=== PATIENT | male | born 1995 | race Caucasian/White ===

== ENCOUNTER 2017-07-05 08:38 | Emergency (ER) | payer BC ==
[2017-07-05 08:59] VITALS: BP 125/77
--- NOTE | 2017-07-05 10:54 | UC ---
Respiratory Complaint HPI - HPI Summary HPI Summary: Onset of sore throat, pain with swallowing, cough, achiness yesterday. No fever , ear pain, nausea/vomiting. Patient is concerned about being ill as his is currently expecting their child. - History of Current Complaint Chief Complaint: UCRespiratory Stated Complaint: SORE THROAT Time Seen by Provider: 07/05/17 09:55 Hx Obtained From: Patient Onset/Duration: Gradual Onset, Lasting Days - 1 DAY, Still Present Timing: Constant Severity Initially: Moderate Severity Currently: Moderate Pain Intensity: 0 Pain Scale Used: 0-10 Numeric Character: Cough: Nonproductive Aggravating Factors: Nothing Alleviating Factors: Nothing Associated Signs And Symptoms: Positive: URI, Nasal Congestion. Negative: Dyspnea, Fever, Chills, Wheezing, Hemoptysis, Hoarseness - Allergies/Home Medications Allergies/Adverse Reactions: Allergies Allergy/AdvReac Type Severity Reaction Status Date / Time Penicillins Allergy Rash Verified 07/05/17 08:47 Home Medications: Home Medications NK [No Home Medications Reported] 07/05/17 [History Confirmed 07/05/17] PMH/Surg Hx/FS Hx/Imm Hx Previously Healthy: Yes Other History Of: Negative For: Anticoagulant Therapy - Surgical History Surgical History: Yes Surgery Procedure, Year, and Place: Tonsillectomy and adenoidectomy as a child. Left Fracture Femur Repair. Right Patella surgery 2013 - Family History Known Family History: Positive: None Negative: Cardiac Disease, Hypertension, Diabetes - Social History Alcohol Use: Occasionally Substance Use Type: Marijuana Substance Use Comment - Amount & Last Used: ON OCCASION Smoking Status (MU): Light Every Day Tobacco Smoker Type: Cigarettes Amount Used/How Often: 1/4 PPD Length of Time of Smoking/Using Tobacco: 9 YEARS Have You Smoked in the Last Year: Yes When Did the Patient Quit Smoking/Using Tobacco: Yeaterday - Immunization History Most Recent Influenza Vaccination: 7273-2932 Most Recent Tetanus Shot: UTD Vaccination Up to Date: Yes Review of Systems Constitutional: Negative ENT: Sore Throat, Nasal Discharge Respiratory: Cough Cardiovascular: Negative Gastrointestinal: Negative Musculoskeletal: Myalgia All Other Systems Reviewed And Are Negative: Yes Physical Exam Triage Information Reviewed: Yes Appearance: Well-Appearing, No Pain Distress, Well-Nourished Vital Signs: Initial Vital Signs Temp 98.8 F 07/05/17 08:42 Pulse 81 07/05/17 08:42 Resp 18 07/05/17 08:42 BP 125/77 07/05/17 08:42 Pulse Ox 99 07/05/17 08:42 Vital Signs Reviewed: Yes Eyes: Positive: Conjunctiva Clear ENT: Positive: Hearing grossly normal, Pharynx normal, TMs normal Neck: Positive: Supple, Nontender, Enlarged Nodes @ - Superficial cervical LAD Respiratory Exam: Normal Cardiovascular Exam: Normal Abdomen Description: Positive: Soft Musculoskeletal: Positive: No Edema Neurological: Positive: Alert Psychological: Positive: Age Appropriate Behavior Skin: Negative: rashes UC Diagnostic Evaluation - Laboratory O2 Sat by Pulse Oximetry: 99 Respiratory Course/Dx - Differential Dx/Diagnosis Provider Diagnoses: ACUTE URI Discharge - Sign-Out/Discharge Documenting (check all that apply): Discharge/Admit/Transfer - Discharge Plan Condition: Stable Disposition: HOME Patient Education Materials: Upper Respiratory Infection (ED) Forms: *Work Release Referrals: Ami Covington MD [Primary Care Provider] - If Needed Additional Instructions: YOUR SYMPTOMS ARE LIKELY VIRALLY MEDIATED AND SHOULD RESOLVE ON THEIR OWN WITH TIME. NO INDICATION FOR ANTIBIOTICS AT PRESENT. REST, HYDRATE, OTC MEDS NEEDED. SEEK FOLLOW-UP IF YOU ARE NOT IMPROVING OVER THE NEXT 1-2 WEEKS. ACUTE UPPER RESPIRATORY INFECTION The common cold is a benign self-limited syndrome representing a group of diseases caused by members of several families of viruses. It is the most frequent acute illness in the [place] and throughout the industrialized world. The term "common cold" refers to a mild upper respiratory viral infection involving, to variable degrees, nasal congestion and discharge ( rhinorrhea), sneezing, sore throat, cough, low-grade fever, headache, and malaise. Symptomatic therapy remains the mainstay of common cold treatment. In the absence of convincing evidence of a secondary bacterial infection, antibiotics are not effective in the treatment of the common cold and should not be prescribed. Be advised that the usual course and duration of illness is up to one and a half weeks for patients with a cold, but can last slightly longer; symptoms usually persist longer in smokers. - Billing Disposition and Condition Condition: STABLE Disposition: HOME
== END 2017-07-05 10:20 | disposition home or self-care (01) ==
LOC: UCEAST 08:38
DX: J06.9 Acute upper respiratory infection, unspecified (principal); Z88.0 Allergy status to penicillin; F17.210 Nicotine dependence, cigarettes, uncomplicated
CPT/HCPCS: 99211; G0463

== ENCOUNTER 2017-07-13 06:41 | Emergency (ER) | payer BC ==
[2017-07-13 06:48] VITALS: BP 152/105
--- NOTE | 2017-07-13 08:21 | ED ---
Skin Complaint - HPI Summary HPI Summary: Patient is a 21-year-old male who presents emergency department for evaluation of a sunburn that he sustained 2 days ago. Patient states he was working on a roof 2 days ago when he sustained a sunburn. Patient states he isn't putting a "burn cream" and aloe on burn as well as taking naproxen. Patient states he was concerned because in the shower this morning he noticed drainage from sunburn on his left arm and presented to the emergency department. He has no past medical history. No associated symptoms of fever or chills. Touching area exacerbates pain. Analgesics and creams improve pain. Symptoms are minimal in severity. - History of Current Complaint Chief Complaint: EDRashSkinAbscess Time Seen by Provider: 07/13/17 07:27 Stated Complaint: RASH Hx Obtained From: Patient Pain Intensity: 5 Pain Scale Used: 0-10 Numeric - Allergy/Home Medications Allergies/Adverse Reactions: Allergies Allergy/AdvReac Type Severity Reaction Status Date / Time Penicillins Allergy Rash Verified 07/05/17 08:47 Home Medications: Home Medications Glucosamine CAP (NF) 1 cap PO DAILY 07/13/17 [History Confirmed 07/13/17] PMH/Surg Hx/FS Hx/Imm Hx Previously Healthy: Yes Endocrine/Hematology History: Denies: Hx Anticoagulant Therapy, Hx Blood Disorders, Hx Diabetes, Hx Thyroid Disease Cardiovascular History: Denies: Hx Hypertension Respiratory History: Reports: Hx Asthma - A CHILD Denies: Hx Chronic Obstructive Pulmonary Disease (COPD) GI History: Denies: Hx Ulcer Sensory History: Denies: Hx Contacts or Glasses, Hx Hearing Aid Opthamlomology History: Denies: Hx Contacts or Glasses Psychiatric History: Reports: Hx Depression - IN THE PAST-NO MEDS - Surgical History Surgery Procedure, Year, and Place: Tonsillectomy and adenoidectomy as a child. Left Fracture Femur Repair. Right Patella surgery 2013 Hx Anesthesia Reactions: No - Immunization History Date of Tetanus Vaccine: up to date per pt Infectious Disease History: No Infectious Disease History: Denies: Hx Clostridium Difficile, Hx Hepatitis, Hx Human Immunodeficiency Virus (HIV), History Other Infectious Disease, Traveled Outside the [place] in Last 30 Days - Family History Known Family History: Positive: None Negative: Cardiac Disease, Hypertension, Diabetes - Social History Occupation: Employed Full-time Lives: With Family Alcohol Use: Occasionally Substance Use Type: Reports: Marijuana Substance Use Comment - Amount & Last Used: ON OCCASION Smoking Status (MU): Light Every Day Tobacco Smoker Type: Cigarettes Amount Used/How Often: 1/4 PPD Length of Time of Smoking/Using Tobacco: 9 YEARS Have You Smoked in the Last Year: Yes Review of Systems Constitutional: Negative Negative: Fever, Chills Positive: Other - sunburn to bilateral arms All Other Systems Reviewed And Are Negative: Yes Physical Exam Triage Information Reviewed: Yes Vital Signs On Initial Exam: Initial Vitals Temp Pulse Resp BP Pulse Ox 97 F 78 20 152/105 97 07/13/17 06:42 07/13/17 06:42 07/13/17 06:42 07/13/17 06:42 07/13/17 06:42 Vital Signs Reviewed: Yes Appearance: Positive: Well-Appearing - Patient sitting in bed in no acute distress. Skin: Positive: Other - Sunburn noted to bilateral arms and face. Noted to the left upper arm skin appears to be sloughing off and the skin is wet. No purulent discharge. No surrounding erythema, edema or induration. Head/Face: Positive: Normal Head/Face Inspection Eyes: Positive: Normal Neurological: Positive: Normal, Alert, Oriented to Person Place, Time Psychiatric: Positive: Normal Diagnostics - Vital Signs Vital Signs Temp Pulse Resp BP Pulse Ox 07/13/17 07:42 97 F 78 18 152/105 97 07/13/17 06:42 97 F 78 20 152/105 97 - Laboratory Lab Statement: Any lab studies that have been ordered have been reviewed, and results considered in the medical decision making process. Course/Dx - Course Course Of Treatment: Patient presenting for evaluation of sunburn with blistering. No signs of infection. She was reassured. Advised him to continue supportive treatment at home that he has already been doing. Cool compresses. Advised to avoid sun and wear long shirts and to always wear sunscreen. Will follow-up with PCP if needed. Patient understands and agrees with plan. - Differential Diagnoses - Skin Complaint Differential Diagnoses: Abscess, Cellulitis - Diagnoses Provider Diagnoses: Burn from the sun Discharge - Sign-Out/Discharge Documenting (check all that apply): Discharge/Admit/Transfer - Discharge Plan Condition: Good Disposition: HOME Patient Education Materials: Sunburn (ED) Referrals: Ami Covington MD [Primary Care Provider] - Additional Instructions: Follow up with PCP Keep skin clean and dry Can continue burn creams as directed NSAIDS for pain as directed Apply cool compresses Use sunscreen and keep skin covered when exposure to the sun Return to ER if symptoms change or worsen - Billing Disposition and Condition Condition: GOOD Disposition: HOME
== END 2017-07-13 07:43 | disposition home or self-care (01) ==
LOC: ED 06:41
DX: L55.9 Sunburn, unspecified (principal); J45.909 Unspecified asthma, uncomplicated; F32.9 Major depressive disorder, single episode, unspecified; Z88.0 Allergy status to penicillin; F17.210 Nicotine dependence, cigarettes, uncomplicated
CPT/HCPCS: 99282

== ENCOUNTER 2019-05-08 07:02 | Emergency (ER) | payer SELFPAY ==
[2019-05-08 07:28] VITALS: BP 151/92
--- NOTE | 2019-05-08 07:59 | UC ---
Skin Complaint HPI - HPI Summary HPI Summary: 23-year-old male comes in with a chief complaint of a rash. Started 1-2 weeks ago. It's primarily on his trunk. He has no fevers no chills feels well otherwise. Does not itch. He has had multiple tick bites in the past and is wondering if it's Lyme disease. - History of Current Complaint Chief Complaint: UCRash Time Seen by Provider: 05/08/19 07:17 Stated Complaint: POSS. LYME Pain Intensity: 0 - Allergy/Home Medications Allergies/Adverse Reactions: Allergies Allergy/AdvReac Type Severity Reaction Status Date / Time Penicillins Allergy Rash Verified 07/05/17 08:47 Home Medications: Home Medications DOXYcycline CAP(*) [DOXYcycline 100MG CAP(*)] 100 mg PO BID #28 cap 05/08/19 [Rx ] PMH/Surg Hx/FS Hx/Imm Hx Previously Healthy: Yes Other History Of: Negative For: Anticoagulant Therapy - Surgical History Surgical History: Yes Surgery Procedure, Year, and Place: Tonsillectomy and adenoidectomy as a child. Left Fracture Femur Repair. Right Patella surgery 2013 - Family History Known Family History: Positive: None Negative: Cardiac Disease, Hypertension, Diabetes - Social History Alcohol Use: Occasionally Substance Use Type: Marijuana Substance Use Comment - Amount & Last Used: ON OCCASION Smoking Status (MU): Light Every Day Tobacco Smoker Type: Cigarettes Amount Used/How Often: 1/4 PPD Length of Time of Smoking/Using Tobacco: 9 YEARS Have You Smoked in the Last Year: Yes When Did the Patient Quit Smoking/Using Tobacco: Yeater - Immunization History Most Recent Influenza Vaccination: [id number] Most Recent Tetanus Shot: UTD Vaccination Up to Date: Yes Review of Systems All Other Systems Reviewed And Are Negative: Yes Constitutional: Positive: Negative Skin: Positive: Rash - SEE HPI Eyes: Positive: Negative ENT: Positive: Negative Respiratory: Positive: Negative Cardiovascular: Positive: Negative Gastrointestinal: Positive: Negative Motor: Positive: Negative Neurovascular: Positive: Negative Musculoskeletal: Positive: Negative Neurological/Mental Status: Positive: Negative Psychological: Positive: Negative Is Patient Immunocompromised?: No Physical Exam Triage Information Reviewed: Yes Appearance: Well-Appearing, No Pain Distress, Well-Nourished Vital Signs: Initial Vital Signs Temp 98.6 F 05/08/19 07:26 Pulse 98 05/08/19 07:26 Resp 18 05/08/19 07:26 BP 151/92 05/08/19 07:26 Pulse Ox 99 05/08/19 07:26 Vital Signs Reviewed: Yes Eye Exam: Normal Eyes: Positive: Conjunctiva Clear ENT: Positive: Pharynx normal Neck: Positive: Supple Respiratory: Positive: Lungs clear, Normal breath sounds, No respiratory distress Cardiovascular: Positive: RRR Musculoskeletal: Positive: Strength Intact, ROM Intact Neurological: Positive: Alert, Muscle Tone Normal Psychological: Positive: Age Appropriate Behavior Skin: Positive: Other - Diffuse rash on the chest that are mostly oval, papulosquamous lesions. I do not appreciate any specific herald patch. Course/Dx - Course Course Of Treatment: The rash appears to be pityriasis rosea. Patient is concerned about the possibility of Lyme disease. He has no other infectious symptoms besides the rash. We are checking a Lyme screen. Give the patient prescription for doxycycline 100 mg twice a day for 14 days to be treated for Lyme disease. If the patient continues to feel well but the rash does not go away he is to follow -up with dermatology. If the patient starts to feel more ill he is to get reevaluated right away. - Diagnoses Provider Diagnosis: Rash, Tick bite Discharge ED - Sign-Out/Discharge Documenting (check all that apply): Patient Departure All imaging exams completed and their final reports reviewed: No Studies - Discharge Plan Condition: Stable Disposition: HOME Prescriptions: DOXYcycline CAP(*) [DOXYcycline 100MG CAP(*)] 100 mg PO BID #28 cap Patient Education Materials: Tick Bite (ED), Acute Rash (ED), Pityriasis rosea (ED) Referrals: Ami Covington MD [Primary Care Provider] - [facility] [Outside] [facility] [Outside] Stephanie Che [Medical Doctor] - Samina Couch MD [Medical Doctor] - Additional Instructions: FOLLOW UP WITH YOUR PRIMARY CARE DOCTOR OR DERMATOLOGY IF NOT COMPLETELY IMPROVED. Your rash appears to be pityriasis rosea which should resolve on its own. If it does not resolve follow-up with dermatology. Lyme Disease results are pending. The treatment for Lyme disease as doxycycline 100 mg twice a day for 14 days. GET REEVALUATED IF NOT IMPROVED OR WORSE; FEVER, YOU FEEL ILL OR ANY QUESTIONS OR CONCERNS. - Billing Disposition and Condition Condition: STABLE Disposition: Home
--- NOTE | 2019-05-10 16:15 | UC ---
- Progress Note Progress Note: 05/10/2019 Lyme screen: Lyme IgG and IgM: negative. NO change Jordan Díaz PA-C Course/Dx - Diagnoses Provider Diagnoses: Rash, Tick bite Discharge ED - Sign-Out/Discharge Documenting (check all that apply): Post-Discharge Follow Up All imaging exams completed and their final reports reviewed: No Studies - Discharge Plan Condition: Stable Disposition: HOME Prescriptions: DOXYcycline CAP(*) [DOXYcycline 100MG CAP(*)] 100 mg PO BID #28 cap Patient Education Materials: Tick Bite (ED), Acute Rash (ED), Pityriasis rosea (ED) Referrals: [facility] [Outside] [facility] [place] [facility] [Outside] Ami Covington MD [Primary Care Provider] - Stephanie Che [Medical Doctor] - Samina Couch MD [Medical Doctor] - Additional Instructions: FOLLOW UP WITH YOUR PRIMARY CARE DOCTOR OR DERMATOLOGY IF NOT COMPLETELY IMPROVED. Your rash appears to be pityriasis rosea which should resolve on its own. If it does not resolve follow-up with dermatology. Lyme Disease results are pending. The treatment for Lyme disease as doxycycline 100 mg twice a day for 14 days. GET REEVALUATED IF NOT IMPROVED OR WORSE; FEVER, YOU FEEL ILL OR ANY QUESTIONS OR CONCERNS. - Billing Disposition and Condition Condition: STABLE Disposition: Home
== END 2019-05-08 08:11 | disposition home or self-care (01) ==
LOC: UCEAST 07:02
DX: R21 Rash and other nonspecific skin eruption (principal); T14.8XXA Other injury of unspecified body region, initial encounter; W57.XXXA Bitten or stung by nonvenomous insect and other nonvenomous arthropods, initial encounter; Y92.9 Unspecified place or not applicable; Z88.0 Allergy status to penicillin
CPT/HCPCS: 36415; 86618; 99212; G0463